=== PATIENT | male | born 1940 | race Caucasian/White ===

== ENCOUNTER 2018-11-28 17:40 | Emergency (ER) | payer OTHER ==
[~2018-11-28] VITALS: Ht 167.6 cm; Wt 57.2 kg
--- NOTE | 2018-11-28 17:51 | NUR ---
PATIENT BIB [facility] W/ LACERATION ON CHIN. PT. STATES THAT HE FELL WHILE WALKING. AAOX4. PATIENT NOT IN ANY DISTRESS. NO SOB NOTED. WILL CONTINUE TO MONITOR FOR SAFETY.
[2018-11-28] MEDS ORDERED: TDAP [DIPH/PERTUSSIS/TET] 0.5 ML VIAL IM ONE ×2 (18:27→18:30)
--- NOTE | 2018-11-28 18:30 | NUR ---
DR. HANKS AT BEDSIDE PERFORMING SUTURE ON PATIENT'S LACERATION
--- NOTE | 2018-11-28 19:00 | NUR ---
Patient discharged to home in stable condition. Written and verbal after care instructions given. Patient verbalizes understanding of instruction.
[2018-11-28 19:04] VITALS: BP 129/71
== END 2018-11-28 19:05 | disposition home or self-care (01) ==
LOC: ER 17:44
DX: S01.81XA Laceration without foreign body of other part of head, initial encounter (principal); F03.90 Unspecified dementia, unspecified severity, without behavioral disturbance, psychotic disturbance, mood disturbance, and anxiety; I10 Essential (primary) hypertension; E11.9 Type 2 diabetes mellitus without complications; Z85.46 Personal history of malignant neoplasm of prostate; W01.198A Fall on same level from slipping, tripping and stumbling with subsequent striking against other object, initial encounter; Y93.01 Activity, walking, marching and hiking; Y92.89 Other specified places as the place of occurrence of the external cause; Y99.8 Other external cause status
CPT/HCPCS: 90715